=== PATIENT | male | born 1985 | race Caucasian/White ===

== ENCOUNTER 2021-05-12 12:00 | Outpatient (REF) | payer OTHER, SELFPAY ==
[2021-05-12 14:14] LABS: COVID-19 Test Negative (Negative)
== END 2021-05-12 12:01 | disposition home or self-care (01) ==
LOC: HO.LAB 12:00
PROVIDERS: Visit Provider Internal Medicine
DX: Z20.822 Contact with and (suspected) exposure to COVID-19 (principal)
CPT/HCPCS: 36415; 87635; C9803

== ENCOUNTER 2023-07-07 15:11 | Emergency (ER) | payer BC, SELFPAY ==
--- NOTE | 2023-07-07 | ECG_ITS ---
Test Reason : CP Blood Pressure : / mmHG Vent. Rate : 075 BPM Atrial Rate : 075 BPM P-R Int : 162 ms QRS Dur : 088 ms QT Int : 368 ms P-R-T Axes : 023 024 015 degrees QTc Int : 410 ms Normal sinus rhythm Normal ECG No previous ECGs available Referred By: Generic ED Physician Electronically Signed By:Johan Mcmahan
[2023-07-07 15:24] VITALS: BP 164/113; PULSE 81; RESP 20; TEMP 35.9; O2SAT 100; BMI 29.4
--- NOTE | 2023-07-07 15:29 | ED_ITS ---
HPI - Chest Pain General Chief Complaint: Chest Pain Stated Complaint: Chest pain Time Seen by Provider: 07/07/23 18:58 Related Data Allergies Allergy/AdvReac Type Severity Reaction Status Date / Time No Known Allergies Allergy Verified 07/07/23 15:31 Physical Exam 2 Vital Signs: Vital Signs: Last Vital Signs Temp 97.0 F 07/07/23 17:31 Pulse 85 07/07/23 17:31 Resp 18 07/07/23 17:31 BP 152/108 H 07/07/23 17:31 Pulse Ox 98 07/07/23 17:31 O2 Del Method Room Air 07/07/23 17:31 BMI result Body Mass Index 29.4 Course Course Course Narrative: RME:?38 yo male here for eval of constant left sided chest pain with radiation to back and left shoulder x3 days. Additionally endorses bright red blood in his stool, diarrhea, and shortness of breath x2 months. Does not currently follow with a PCP and has not been evaluated for this. No recent illness. No known sick contacts. labs, ekg, trop, OBS ordered Full HPI, ROS and PE to be performed by the primary ED provider. Reevaluation(s) Reevaluation #1: Patient left the ED without completing treatment. Medical Decision Making Lab Data 07/07/23 16:04 07/07/23 16:04 Labs: Lab Results 07/07/23 Range/Units 16:04 WBC 8.3 (4.8-10.8) X10*3/uL RBC 5.89 H (4.60-5.80) X10*6/uL Hgb 17.7 (14.0-18.0) g/dl Hct 52.6 H (42.0-52.0) % MCV 89.3 (80.0-98.0) fL MCH 30.1 (27.0-33.0) pg MCHC 33.7 (31.0-36.0) g/dl RDW 12.7 (11.0-16.0) % Plt Count 284 (160-400) X10*3/uL MPV 10.1 (9.4-12.4) fL Immature Gran % (Auto) 0.4 (0.0-0.4) % Neut % (Auto) 60.9 (45-73) % Lymph % (Auto) 26.0 (20-40) % [place] % (Auto) 8.1 (2-11) % Eos % (Auto) 3.9 (0-4) % Baso % (Auto) 0.7 (0-2) % Lymph # (Auto) 2.2 (1.2-4.9) X10*3/uL [place] # (Auto) 0.7 (0.1-1.2) X10*3/uL Eos # (Auto) 0.3 (0.0-0.4) X10*3/uL Baso # (Auto) 0.1 (0.0-0.2) X10*3/uL Abs Immat Gran (auto) 0.03 (0.00-0.03) X10*3/uL Absolute Neuts (auto) 5.0 (2.0-8.3) x10*3/uL Absolute Nucleated RBC 0.000 (0.0-0.012) X10*3/uL Nucleated RBC % (auto) 0.0 (0.0-0.2) /100WBC PT 12.5 (11.1-13.3) SEC INR 1.0 (0.9-1.1) Sodium 136 (135-145) mmol/L Potassium 4.5 (3.3-5.1) mmol/L Chloride 101 (96-108) mmol/L Carbon Dioxide 27 (22-29) mmol/L Anion Gap 13 (12-20) BUN 14 (9-16) mg/dL Creatinine 0.85 (0.5-1.4) mg/dL Estim Creat Clear Calc 133.6 Estimated GFR > 60 Random Glucose 86 (60-115) mg/dL Calcium 9.8 (8.4-10.2) mg/dL Magnesium 1.9 (1.6-2.6) mg/dL Total Bilirubin 1.5 H (0.0-1.0) mg/dL AST 38 H (5-37) U/L ALT 86 H (0-40) U/L Alkaline Phosphatase 63 (39-117) U/L Troponin I High Sens < 2.7 (<3.5-35.0) ng/L Total Protein 8.9 H (6.5-8.0) g/dL Albumin 4.8 (3.5-5.0) g/dL Lipase 21 (8-78) U/L Discharge Plan Discharge Clinical Impression: Chest pain Patient Disposition: Left W/O Completing Treatment
[2023-07-07 16:10] LABS: MANUAL DIFF FLAG NO
[2023-07-07 16:12] LABS: Basophils Absolute Auto 0.1 X10*3/uL (0.0-0.2); Basophils Percent Auto 0.7 % (0-2); Eosinophils Absolute Auto 0.3 X10*3/uL (0.0-0.4); Eosinophils Percent Auto 3.9 % (0-4); Hematocrit 52.6 % (42.0-52.0); Hemoglobin 17.7 g/dl (14.0-18.0); Imm Gran Abs Auto 0.03 X10*3/uL (0.00-0.03); Imm Gran Pct Auto 0.4 % (0.0-0.4); Lymphocytes Absolute Auto 2.2 X10*3/uL (1.2-4.9); Mean Corpuscular HGB Conc 33.7 g/dl (31.0-36.0); Mean Corpuscular Hemoglobin 30.1 pg (27.0-33.0); Mean Corpuscular Volume 89.3 fL (80.0-98.0); Mean Platelet Volume 10.1 fL (9.4-12.4); Monocytes Absolute Auto 0.7 X10*3/uL (0.1-1.2); Monocytes Percent Auto 8.1 % (2-11); Neutrophils Percent Auto 60.9 % (45-73); Platelet Count 284 X10*3/uL (160-400); Red Blood Count 5.89 X10*6/uL (4.60-5.80); Red Cell Distribution Width 12.7 % (11.0-16.0); White Blood Count 8.3 X10*3/uL (4.8-10.8)
[2023-07-07 16:20] LABS: Prothrombin Time 12.5 SEC (11.1-13.3)
[2023-07-07 16:25] LABS: Alanine Aminotransferase 86 U/L (0-40); Albumin Level 4.8 g/dL (3.5-5.0); Alkaline Phosphatase 63 U/L (39-117); Anion Gap 13 (12-20); Aspartate Amino Transferase 38 U/L (5-37); Bilirubin Total 1.5 mg/dL (0.0-1.0); Blood Urea Nitrogen 14 mg/dL (9-16); Calcium 9.8 mg/dL (8.4-10.2); Carbon Dioxide 27 mmol/L (22-29); Chloride 101 mmol/L (96-108); Creatinine Clr Calc Pharmacy 133.6; Estimated Glomerular Filt Rate > 60; Glucose Random 86 mg/dL (60-115); Lipase 21 U/L (8-78); Magnesium 1.9 mg/dL (1.6-2.6); Potassium 4.5 mmol/L (3.3-5.1); Sodium 136 mmol/L (135-145); Total Protein 8.9 g/dL (6.5-8.0)
[2023-07-07 17:31] VITALS: BP 152/108; PULSE 85; RESP 18; TEMP 36.1; O2SAT 98
[2023-07-07 18:09] LABS: Troponin-I High Sensitivity < 2.7 ng/L (<3.5-35.0)
== END 2023-07-07 19:21 | disposition left against medical advice (07) ==
PROVIDERS: Physician Assistant Medical; Emergency Provider Emergency Medicine; PCP Physician Assistant
DX: R07.89 Other chest pain (principal); Z79.899 Other long term (current) drug therapy
CPT/HCPCS: 36415; 80053; 83690; 83735; 84484; 85025; 85610; 93005; 99283

== ENCOUNTER → 2023-07-07 15:19 | Outpatient (BNV) | payer BC, SELFPAY | PROVIDERS: PCP Physician Assistant; Visit Provider Internal Medicine Cardiovascular Disease | DX: R07.9 Chest pain, unspecified (principal) | CPT/HCPCS: 93010 ==

== ENCOUNTER 2023-07-18 15:47 | Outpatient (AMB) | payer BC, SELFPAY ==
[2023-07-18 15:50] VITALS: BP 128/84; PULSE 80; BMI 30.4
--- NOTE | 2023-07-18 15:50 | A.OFFPC_ITS ---
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 Transferring care from Dr. Jacinda Lockhart MD . Medical records have been requested today. 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 Patient's [facility] PCP [facility] at [facility]. Patient has no chronic medical conditions. Does suffer from migraines in the Spring months. Patient was recently seen at the [place] [facility] for left-sided chest pain and reports a prior red blood per rectum. Labs and EKG were normal. Reports having this left sided chest pain the presents while lying down to sleep at 2-3am in the morning and keeps him up. He otherwise denies any left-sided chest pain during the day or on exertion. He does not smoke. He does admit to some upper GI pains at times which are located in a similar area on his left upper abdominal quadrant and chest. Vaccines: declines flu vaccine, need Tdap vaccine will await records. 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 1. Little interest or pleasure in doing things: not at all 2. Feeling down, depressed, or hopeless: not at all 3. Trouble falling or staying asleep, or sleeping too much: not at all 4. Feeling tired or having little energy: not at all 5. Poor appetite or overeating: not at all 6. Feeling bad about yourself - or that you are a failure or have let yourself or your family down: not at all 7. Trouble concentrating on things, such as reading the newspaper or watching television: not at all 8. Moving or speaking so slowly that other people could have noticed. Or the opposite - being so fidgety or restless that you have been moving around a lot more than usual: not at all 9. Thoughts that you would be better off or of hurting yourself in some way: not at all Total score: 0 Depression Screening Interpretation: Negative Depression Screening Done: Yes 34786 - PHQ-9 Billing: Yes Source: Developed by Drs. Gil Moreno, Radha Baxter, Juan J Jacobs and colleagues, with an educational aida from [employer]. Thrive Questionnaire Date Thrive assessed: 07/18/23 I am a: Patient What is your living situation today?: I have a steady place to live Within the past 12 months, did the food you bought not last and you didn't have the money to get more?: Never true Within the past 12 months, did you worry whether your food would run out before you got money to buy more?: Never true Do you have trouble paying for medicines?: No Do you have trouble getting transportation to medical appointments?: No Do you have trouble paying your heating and electricity bill?: No Do you have trouble taking care of your child, family member or friend?: No Do you have trouble with day-to-day activities such as bathing, preparing meals, shopping, managing finances, etc.?: No Are you currently unemployed and looking for a job?: No Are you interested in more education?: No Please select the resources that you would like help with: None Currently or been in a relationship where the following occur: no concerns reported THRIVE Score: 0 AUDIT C Alcohol Use Questionnaire (AUDIT-C) 1. How often do you have a drink containing alcohol?: 2-3 times a week 2. How many drinks containing alcohol do you have on a typical day when you are drinking?: 3 or 4 3. How often do you have six or more drinks on one occasion?: Less than monthly Total Score: 5 ROBYN-7 AMB Questionnaire ROBYN-7 Date ROBYN - 7 assessed: 07/18/23 Feeling nervous, anxious, or on edge: 0 = Not at all Not being able to stop or control worryin = Not at all Worrying too much about different things: 0 = Not at all Trouble relaxin = Not at all Being so restless that it is hard to sit still: 0 = Not at all Becoming easily annoyed or irritable: 0 = Not at all Feeling afraid as if something awful might happen: 0 = Not at all Total ROBYN-7 score (0-4 normal; 5-9 mild; 10-14 moderate; 15-21 severe): 0 Source: Developed by Drs. Gil Moreno, Radha Baxter, Juan J Jacobs and colleagues, with an educational aida from [employer]. ROBYN-7 Assessment Billing ROBYN-7 Assessment Tool: ROBYN-7 Assessment [id number] Review of Systems Const Denies body aches, Denies chills, Denies excessive sweating, Denies fatigue, Denies fever(s) and Denies headache(s) Eyes Denies blurry vision ENT Denies dysphagia, Denies vertigo, Denies dizziness, Denies headache(s), Denies hearing loss and Denies tinnitus Card Reports chest pain, Reports chest pain at rest, Denies chest pain with activity, Denies syncope, Denies irregular heart rhythm and Denies dyspnea Resp Denies chest congestion, Denies cough, Denies hemoptysis, Denies dyspnea and Denies wheezing GI Denies abdominal pain, Denies melena, Denies hematochezia, Denies coffee ground emesis, Denies dysphagia, Denies diarrhea, Denies nausea and Denies vomiting Denies difficulty urinating, Denies dysuria, Denies urinary frequency, Denies urinary hesitancy and Denies urinary urgency Musc Denies arthralgias, Denies limited range of motion, Denies muscle cramps and Denies muscle weakness Skin/Breast Denies rash and Denies skin ulcer Neuro Denies Abnormal speech present, Denies confusion, Denies vertigo, Denies dizziness, Denies syncope, Denies headache(s), Denies memory loss and Denies seizure-like activity Psych Denies anxiety, Denies confusion, Denies depression, Denies memory loss, Denies panic attacks and Denies paranoia Endo Denies excessive sweating, Denies fatigue, Denies flushing, Denies polydipsia and Denies polyuria Aller/Immun Denies wheezing Physical exam (Primary Care) Vital Signs: Last Vital Signs Pulse 80 07/18/23 15:50 BP 128/84 07/18/23 15:50 BMI result Body Mass Index 30.4 BMI Assessment/Plan discussion: High Tobacco/Smoking Status: Tobacco use Status Tobacco use date assessed 07/18/23 07/18/23 16:04 Patient Tobacco Use Status Never used Tobacco 07/18/23 16:16 e-Cigarette/Vaping Use Never Used 07/18/23 16:16 PHQ-9: PHQ-9 Score PHQ-9: Total score 0 07/18/23 16:26 Depression Screening Interpretation: Negative Thrive Assessment: Date of Thrive Assessment Date Thrive assessed 07/18/23 07/18/23 16:04 Currently or been in a relationship where the following occur: no concerns reported Const Other: Obese General: cooperative, comfortable, no acute distress, alert and awake; No confusion Orientation/consciousness: oriented to person, oriented to place, patient oriented x3 and No confusion HENMT Head: Yes normocephalic Ears: external ears normal and TM's normal bilaterally Face and sinus: No sinus tenderness Mouth: Normal oral and palatal mucosa present and tongue normal Teeth and gingiva: dentition normal and gingiva normal Throat: Yes posterior oropharynx normal, Yes tonsils normal and Yes uvula midline Eyes Conjunctivae: conjunctivae normal Sclerae: sclerae normal Pupils: Equal, round and reactive pupils present EOM: EOMs intact bilaterally Direct Ophthalmoscopy: No no photophobia Neck Neck: Yes no lymphadenopathy, No tender and Yes no JVD Thyroid: Thyroid normal Carotids: no bruits Chest Chest palpation & inspection: no tenderness Resp Effort & Inspection: normal respiratory effort, no audible wheezes, not labored and no stridor Auscultation: no crackles, no rales, no rhonchi and no wheezes Cardio Jugular venous distension: no JVD Rate: regular rate, not bradycardic and not tachycardic Rhythm: regular rhythm Bruits: no carotid bruits Peripheral pulses: Peripheral pulses 2+ throughout GI Inspection: Yes normal to inspection, No abdominal wall ecchymosis and No visible herniation Palpation (GI): Soft to palpation, nontender, no guarding, not rigid and No hepatosplenomegaly present Auscultation: normoactive bowel sounds General: Yes no CVA tenderness Back/Spine/Pelvis Back: no CVA tenderness and No back tenderness Cervical Spine: cervical ROM normal Thoracic/Lumbar Spine: thoracic and lumbar spine normal to inspection, straight leg raise negative bilaterally, No thoraco-lumbar ROM limited and No lumbar spinal tenderness Skin Lesions: no lesions Rashes: no rashes Wounds: no wounds Neuro General: oriented to person, oriented to place, patient oriented x3, CN's II-XI intact bilaterally and No confusion Cranial nerves: Yes Equal, round and reactive pupils present and Yes Normal accommodation reflex present Cognition (Neuro): normal cognition Speech: No Abnormal speech present Gait exam (Neuro): Normal gait present Motor exam (neuro): 5/5 motor strength present throughout Extrem Right upper extremity: full ROM; no cyanosis Left upper extremity: full ROM; no cyanosis Right lower extremity: no edema Left lower extremity: no edema Psych Appearance: grossly normal Mental Status: mental status grossly normal Affect: normal affect Attitude: cooperative Thought process: Normal thought process present Assessment and Plan Assessment & Plan (1) Annual physical exam: Code(s): Z00.00 - Encounter for general adult medical examination without abnormal findings (2) Left-sided chest pain: Code(s): R07.9 - Chest pain, unspecified Plan: Unclear etiology to patient's left-sided chest pain that presents when lying down and sleeping in the middle of the night. Otherwise during the day he is completely fine without any chest pain, shortness for breath, headache ect. Very odd presentation though could be GI related. Will try PPI. Will also send for chest x-ray to evaluate the lower aspect of his left rib/ lung. Will consider cardiac stress testing (3) Screening for diabetes mellitus (DM): Code(s): Z13.1 - Encounter for screening for diabetes mellitus (4) Obese: Code(s): E66.9 - Obesity, unspecified Qualifiers: Body mass index: BMI 30.0-30.9 Obesity classification: adult class 1 (BMI 30 - 34.9) Obesity type: due to excess calories Serious obesity comorbidity presence: without serious comorbidity Qualified Code(s): E66.09 - Other obesity due to excess calories; Z68.30 - Body mass index [BMI] 30.0-30.9, adult Plan: Patient does understand his BMI is over 30 will continue working on being more physically active and adapting to better eating habits to reduce his weight. (5) GERD (gastroesophageal reflux disease): Code(s): K21.9 - Gastro-esophageal reflux disease without esophagitis Qualifiers: Esophagitis presence: without esophagitis Qualified Code(s): K21.9 - Gastro-esophageal reflux disease without esophagitis Plan: He does report at times having GERD type symptoms. Will supply patient with a 2 week trial of PPI therapy to see if his left-sided chest pain resolves. (6) LUQ abdominal pain: Code(s): R10.12 - Left upper quadrant pain Plan: Patient's pain is somewhat located in left upper abdominal quadrant thus will se nd for ultrasound of the abdomen to evaluate for splenomegaly or spleen cyst. (7) Migraine: Code(s): G43.909 - Migraine, unspecified, not intractable, without status migrainosus Qualifiers: Intractability: not intractable Migraine type: unspecified Status migrainosus presence: without status migrainosus Qualified Code(s): G43.909 - Migraine, unspecified, not intractable, without status migrainosus Plan: Does report having severe migraine that cause him temporary disability in the spring time which he attributes to changes in barometric pressures and weather. Will supply patient with sumatriptan 25 mg to use on a p.r.n. basis to abort migraine. Orders: Orders US abdomen complete 07/18/23 R10.12 - Left upper quadrant pain Complete Blood Count no Diff 07/18/23 R10.12 - Left upper quadrant pain XR chest 2V 07/18/23 R07.9 - Chest pain, unspecified Comprehensive [place]. Panel Fast 07/18/23 Z13.1 - Encounter for screening for diab etes mellitus Lipase 07/18/23 R10.12 - Left upper quadrant pain Medications: New sumatriptan succinate take 1 tab at onset of headache; if no relief may repeat 1 tab after at least 2 hrs; max = 4 tabs/24 hr PO 30 days 9 tabs 0RF G43.909 - Migraine, unspecified, not intractable, without status migrainosus omeprazole 20 mg PO DAILY 14 days 14 caps 0RF K21.9 - Gastro-esophageal reflux disease without esophagitis Coding Level of Care Code New Pt Prev Care 18-39yr([id number] Diagnoses Annual physical exam Z00.00 Left-sided chest pain R07.9 Screening for diabetes mellitus (DM) Z13.1 Class 1 obesity due to excess calories without serious comorbidity with body mass index (BMI) of 30.0 to 30.9 in adult E66.09; Z68.30 Body mass index: BMI 30.0-30.9 Obesity classification: adult class 1 (BMI 30 - 34.9) Obesity type: due to excess calories Serious obesity comorbidity presence: without serious comorbidity Gastroesophageal reflux disease without esophagitis K21.9 Esophagitis presence: without esophagitis LUQ abdominal pain R10.12 Migraine without status migrainosus, not intractable, unspecified migraine type G43.909 Intractability: not intractable Migraine type: unspecified Status migrainosus presence: without status migrainosus Additional Codes ROBYN-7 Assessment Billing - ROBYN-7 Assessment Tool: ROBYN-7 Assessment [id number] ([id number])
== END 2023-07-18 16:35 | disposition home or self-care (01) ==
PROVIDERS: PCP Physician Assistant; Visit Provider Physician Assistant
DX: Z00.00 Encounter for general adult medical examination without abnormal findings (principal); R07.9 Chest pain, unspecified; Z13.1 Encounter for screening for diabetes mellitus; E66.09 Other obesity due to excess calories; Z68.30 Body mass index [BMI] 30.0-30.9, adult; K21.9 Gastro-esophageal reflux disease without esophagitis; R10.12 Left upper quadrant pain; G43.909 Migraine, unspecified, not intractable, without status migrainosus
CPT/HCPCS: 99385

== ENCOUNTER 2023-08-07 08:25 | Outpatient (REF) | payer BC, SELFPAY ==
--- NOTE | ~2023-08-07 | XR_ITS ---
EXAMINATION: XR CHEST CLINICAL INFORMATION: Chest pain. COMPARISON: None available. TECHNIQUE: 2 views of the chest were obtained. FINDINGS: No significant abnormality is noted involving the heart, lungs, mediastinum, bony thorax or soft tissues. XR/XR chest 2V IMPRESSION: Unremarkable examination.
--- NOTE | ~2023-08-07 | US_ITS ---
EXAMINATION: US ABDOMEN COMPLETE CLINICAL INFORMATION: Left upper quadrant pain. COMPARISON: None available. TECHNIQUE: Real-time imaging of the abdominal viscera. Technically difficult study secondary to bowel gas. FINDINGS: PANCREAS: Limited visualization of pancreatic tail and head. Imaged portion of pancreatic body is unremarkable. ABDOMINAL AORTA: Poorly visualized. INFERIOR VENA CAVA: Visualized portions are normal. LIVER: Increased hepatic parenchymal heterogeneity and echogenicity could be associated with hepatocellular disease/hepatic steatosis and substantially limits visualization. Correlation with liver function tests and clinical exam recommended to determine further management. GALLBLADDER: No gallstones. Borderline gallbladder wall thickening of 3 mm. COMMON BILE DUCT: Normal in caliber measuring 0.4 cm in diameter. RIGHT KIDNEY: No hydronephrosis. No renal calculi. Limited visualization. The kidney measures 10.5 cm in maximum dimension. LEFT KIDNEY: No hydronephrosis. No renal calculi. Limited visualization. The kidney measures 11.4 cm in maximum dimension. SPLEEN: Borderline enlarged. The spleen measures 13.0 cm in maximum dimension. FREE FLUID: None. US/US abdomen complete IMPRESSION: 1. Increased hepatic parenchymal heterogeneity and echogenicity could be associated with hepatocellular disease/hepatic steatosis and substantially limits visualization. Correlation with liver function tests and clinical exam recommended to determine further management. 2. Borderline gallbladder wall thickening of 3 mm. 3. Borderline splenomegaly.
== END 2023-08-07 08:26 | disposition home or self-care (01) ==
LOC: HO.US 08:25
PROVIDERS: PCP Physician Assistant; Visit Provider Physician Assistant
DX: R07.9 Chest pain, unspecified (principal); R10.12 Left upper quadrant pain
CPT/HCPCS: 71046; 76700

== ENCOUNTER 2023-10-11 11:03 | Outpatient (REF) | payer BC, SELFPAY ==
[2023-10-11 12:33] LABS: Hematocrit 50.8 % (42.0-52.0); Hemoglobin 17.1 g/dl (14.0-18.0); Mean Corpuscular HGB Conc 33.7 g/dl (31.0-36.0); Mean Corpuscular Hemoglobin 30.5 pg (27.0-33.0); Mean Corpuscular Volume 90.7 fL (80.0-98.0); Mean Platelet Volume 10.3 fL (9.4-12.4); Platelet Count 304 X10*3/uL (160-400); Red Cell Distribution Width 12.7 % (11.0-16.0); White Blood Count 7.7 X10*3/uL (4.8-10.8)
[2023-10-11 13:09] LABS: Alanine Aminotransferase 41 U/L (0-40); Albumin Level 4.7 g/dL (3.5-5.0); Alkaline Phosphatase 68 U/L (39-117); Anion Gap 14 (12-20); Aspartate Amino Transferase 28 U/L (5-37); Bilirubin Total 1.4 mg/dL (0.0-1.0); Blood Urea Nitrogen 11 mg/dL (9-16); Calcium 9.9 mg/dL (8.4-10.2); Carbon Dioxide 26 mmol/L (22-29); Chloride 102 mmol/L (96-108); Cholesterol 185 mg/dL (<200); Estimated Glomerular Filt Rate > 60; Glucose Random 90 mg/dL (60-115); HDL Cholesterol 44 mg/dL (>40); Iron 128 mcg/dL (45-160); LDL Cholesterol Calculated 109 mg/dL (<100); Percent Iron Saturation 43 % (15-50); Potassium 4.3 mmol/L (3.3-5.1); Sodium 138 mmol/L (135-145); Total Iron Binding Capacity 299 mcg/dL (228-428); Total Protein 8.5 g/dL (6.5-8.0); Triglycerides 164 mg/dL (<150); Unsaturated Iron Binding 171 ug/dL
[2023-10-11 13:23] LABS: Ferritin 226 ng/mL (20-250)
[2023-10-11 13:24] LABS: Estimated Average Glucose 108 mg/dL; Hemoglobin A1c % 5.4 % (<6.0)
[2023-10-12 04:33] LABS: HBS Num1 17.92 mIU/mL (0-7.99); HBc Num1 0.14 S/CO (0.00-0.79); HBsAGNum1 0.26 S/CO (0.00-0.99); HIV AB/AG Nonreactive (Nonreactive); HIV Num 1 0.05 S/CO (0.00-0.99); Hepatitis B Core Antibody Nonreactive (Nonreactive); Hepatitis B Surface Antigen Negative (Negative); ~HepC Num1 0.11 S/CO (0.00-0.79); ~Hepatitis B Surface Antibody REACTIVE (Nonreactive); ~Hepatitis C Antibody Nonreactive (Nonreactive)
[2023-10-12 04:34] LABS: Hepatitis A Antibody IgG Nonreactive (Nonreactive); ~Hepatitis A Antibody IgG 0.67 S/CO (0.00-0.99)
[2023-10-12 14:44] LABS: Alpha 1 Anti-trypsin 135 mg/dL (83-199); Ceruloplasmin 25 mg/dL (14-30)
[2023-10-12 14:54] LABS: Immunoglobulin A 329 mg/dL (47-310); Immunoglobulin G 1872 mg/dL (600-1640)
[2023-10-13 08:23] LABS: Transglutaminase IgA <1.0 U/mL
[2023-10-17 13:13] LABS: Mitochondrial Antibodies NEGATIVE (NEGATIVE)
[2023-10-17 13:23] LABS: Liver Kidney Microsomal Ab <=20.0 U (<=20.0)
== END 2023-10-11 11:04 | disposition home or self-care (01) ==
LOC: HO.LAB 11:03
PROVIDERS: PCP Physician Assistant; Visit Provider Internal Medicine
DX: Z11.4 Encounter for screening for human immunodeficiency virus [HIV] (principal); R79.89 Other specified abnormal findings of blood chemistry; R16.1 Splenomegaly, not elsewhere classified
CPT/HCPCS: 36415; 80053; 80061; 80321; 82103; 82390; 82728; 82784; 83036; 83540; 85027; 86364; 86376; 86381; 86704; 86706; 86708; 86803; 87340; 87389

== ENCOUNTER 2023-10-11 11:03 | Outpatient (AMB) | payer BC, SELFPAY ==
[2023-10-11 11:14] VITALS: BP 133/82; PULSE 76; BMI 29.4
--- NOTE | 2023-10-11 11:14 | A.OFFVIS_ITS ---
Vital Signs 10/11/23 11:14 Height 5 ft 10 in Weight 205 lb 0.478 oz BMI 29.4 BP 133/82 Blood Pressure Location Lt brachial Position Sitting Pulse 76 Intake Visit Reasons: splenomegaly Intake Note: Griffin presents in the office as a new patient for Splenomegaly. CC: He states that originally he was sent here because of severe diarrhea and pains in the LUQ. Under his left rib cage and it radiated to his back of the left arm - he states that sometimes after he eats he feels it but it has gotten a lot better. He states that the last month or so he has not had diarrhea and not many pains in the LUQ. Senior Director Insight Required: No Allergies No Known Allergies Allergy (Verified 10/11/23 11:23) HPI Comments Details: 38 y.o M referred for abnormal US. Reports many months ago had L sided chest and abd pain that radiated to his shoulder. Pain subsided in a few weeks. Sometimes gets tightness of that area tamy after eating food. Pt drinks etOH 2 drinks 4-5 times a week. Non smoker. No OTC or CAM. 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 Cognitive needs: No Hearing needs: No Vision needs: No Physical Exam Vital Signs: Last Vital Signs Pulse 76 10/11/23 11:14 BP 133/82 10/11/23 11:14 BMI result Body Mass Index 29.4 NAD Nonicteric Abd soft, nondistended A.Ox3, normal gait Assessment & Plan Assessment & Plan (1) Elevated LFTs: Code(s): R79.89 - Other specified abnormal findings of blood chemistry Category: Medical (2) Splenomegaly: Code(s): R16.1 - Splenomegaly, not elsewhere classified Category: Medical (3) Screening for diabetes mellitus (DM): Code(s): Z13.1 - Encounter for screening for diabetes mellitus Category: Medical (4) Alcohol use: Code(s): Z78.9 - Other specified health status Plan REviewed with the pt that based on LFT pattern most likely due to etOH use which in turn has also led to borderline splenomegaly. Will also run labs to r/o other causes such as AIH, iron overload, wilsons, chronic hep etc. Plan: - Labs as below - Abstinence from etOH x 3 months and recheck labs - Fib-4 0.56, advanced fibrosis less likely at this time. Follow up 4 months Orders: Orders Comprehensive Met. Panel Today R16.1 - Splenomegaly, not elsewhere classified, R79.89 - Other specified abnormal findings of blood chemistry Ferritin Today R16.1 - Splenomegaly, not elsewhere classified, R79.89 - Other specified abnormal findings of blood chemistry Phosphatidylethanol, Blood Today R16.1 - Splenomegaly, not elsewhere cla ssified, R79.89 - Other specified abnormal findings of blood chemistry Hepatitis A IgG Today R16.1 - Splenomegaly, not elsewhere classified, R79.89 - Other specified abnormal findings of blood chemistry Hepatitis C Antibody Today R16.1 - Splenomegaly, not elsewhere classified, R79.89 - Other specified abnormal findings of blood chemistry Immunoglobulin G Today R16.1 - Splenomegaly, not elsewhere classified, R79.89 - Other specified abnormal findings of blood chemistry Mitochondrial Antibody Today R16.1 - Splenomegaly, not elsewhere classified, R79.89 - Other specified abnormal findings of blood chemistry Liver Kidney Microsomal Ab Today R16.1 - Splenomegaly, not elsewhere classified, R79.89 - Other specified abnormal findings of blood chemistry Hemoglobin A1c Today R16.1 - Splenomegaly, not elsewhere classified, R79.89 - Other specified abnormal findings of blood chemistry Complete Blood Count no Diff Today R16.1 - Splenomegaly, not elsewhere classified, R79.89 - Other specified abnormal findings of blood chemistry Alpha 1 Anti-trypsin Today R16.1 - Splenomegaly, not elsewhere classified, R79.89 - Other specified abnormal findings of blood chemistry Ceruloplasmin Today R16.1 - Splenomegaly, not elsewhere classified, R79.89 - Other specified abnormal findings of blood chemistry Hepatitis B Core Antibody Today R16.1 - Splenomegaly, not elsewhere classified, R79.89 - Other specified abnormal findings of blood chemistry Hepatitis B Surface Antibody Today R16.1 - Splenomegaly, not elsewhere classified, R79.89 - Other specified abnormal findings of blood chemistry Hepatitis B Surface Antigen Today R16.1 - Splenomegaly, not elsewhere classified, R79.89 - Other specified abnormal findings of blood chemistry HIV Ab/Ag Today R16.1 - Splenomegaly, not elsewhere classified, R79.89 - Other specified abnormal findings of blood chemistry Immunoglobulin A Today R16.1 - Splenomegaly, not elsewhere classified, R79.89 - Other specified abnormal findings of blood chemistry IRON PROFILE Today R16.1 - Splenomegaly, not elsewhere classified, R79.89 - Other specified abnormal findings of blood chemistry Transglutaminase IgA Today R16.1 - Splenomegaly, not elsewhere classified, R79.89 - Other specified abnormal findings of blood chemistry Lipid Panel Today R16.1 - Splenomegaly, not elsewhere classified, R79.89 - Other specified abnormal findings of blood chemistry Liver Panel 4 Months R79.89 - Other specified abnormal findings of blood chemistry Coding Level of Care Code New Pt Level 4 (22349) Diagnoses Elevated LFTs R7. Splenomegaly R16.1 Screening for diabetes mellitus (DM) Z13.1 Alcohol use Z78.9
== END 2023-10-11 12:01 | disposition home or self-care (01) ==
PROVIDERS: PCP Physician Assistant; Visit Provider Internal Medicine
DX: R79.89 Other specified abnormal findings of blood chemistry (principal); R16.1 Splenomegaly, not elsewhere classified; Z13.1 Encounter for screening for diabetes mellitus; Z78.9 Other specified health status
CPT/HCPCS: 99204

== ENCOUNTER 2024-01-16 15:37 | Outpatient (AMB) | payer BC, SELFPAY ==
[2024-01-16 15:45] VITALS: BP 118/72; PULSE 107; O2SAT 97; BMI 29.8
--- NOTE | 2024-01-16 15:45 | MHC.PC.OV ---
Vital Signs 01/16/24 15:45 Height 5 ft 10 in Weight 207 lb 6 oz BMI 29.8 BP 118/72 Blood Pressure Location Lt brachial Position Sitting Pulse 107 H Pulse Source Pulse Oximeter Pulse Oximetry (%) 97 Oxygen Delivery Method Room Air Intake Visit Reasons: f/u Labs Palletizer Operator Required: No Accompanied by: Self / Same As Patient Allergies No Known Allergies Allergy (Verified 01/16/24 15:47) Medication List - Last Reconciled 01/16/24 by Terry Vega PA-C omeprazole 20 mg PO DAILY 14 days sumatriptan succinate take 1 tab at onset of headache; if no relief may repeat 1 tab after at least 2 hrs; max = 4 tabs/24 hr PO 30 days Tobacco use date assessed: 07/18/23 Dental Screening Dental Screen Date: 07/18/23 HPI f/u Labs HPI Details Patient is a 38-year-old male here today for follow-up visit. Patient's past medical history significant for migraine disorder, splenomegaly and elevated LFTs. Did get an ultrasound of his abdomen which did show splenomegaly and signs symptoms consistent with fatty liver disease. He was advised to abstain from alcohol. Has followed up with Gastroenterology and repeat liver enzymes have improved. He also reports he has stopped snacking after 20:00 and now feels much better. Otherwise is due for a new baby girl next few weeks and needs a Tdap vaccine. Laboratory Tests 07/07/23 10/11/23 16:04 12:16 RBC 5.89 H 5.60 Random Glucose 90 Hemoglobin A1c % 5.4 AST 38 H 28 ALT 86 H 41 H IgG 1872 H IgA 329 H PFSH Medical History Mixed anxiety and depressive disorder Migraine Surgical History History of esophagogastroduodenoscopy (EGD) Hx of appendectomy Family History Father High cholesterol Mother Breast cancer Social History Housing: House Alcohol intake: current Alcohol intake frequency: a few times a month Alcohol type: beer Patient Tobacco Use Status: Never used Tobacco e-Cigarette/Vaping Use: Never Used service: No Current occupational status: employed 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 Gil Moreno, Radha Baxter, Juan J Jacobs and colleagues, with an educational aida from [employer]. Review of Systems Const Denies headache(s) Eyes Denies loss of vision ENT Denies vertigo, Denies dizziness, Denies headache(s) and Denies sore throat Card Denies chest pain, Denies leg edema and Denies lightheadedness Resp Denies cough, Denies hemoptysis and Denies wheezing GI Denies abdominal pain, Denies melena, Denies constipation, Denies diarrhea and Denies vomiting Denies dysuria, Denies urinary frequency and Denies urinary urgency Musc Denies arthralgias, Denies joint swelling, Denies numbness and Denies tingling Neuro Denies Abnormal speech present, Denies behavioral changes, Denies vertigo, Denies dizziness, Denies headache(s), Denies loss of vision, Denies memory loss, Denies numbness and Denies tingling Psych Denies anxiety, Denies behavioral changes, Denies depression, Denies memory loss and Denies panic attacks Yanick/Lymph Denies easy bleeding and Denies easy bruising Aller/Immun Denies wheezing Physical exam (Primary Care) Vital Signs: Last Vital Signs Pulse 107 H 01/16/24 15:45 BP 118/72 01/16/24 15:45 Pulse Ox 97 01/16/24 15:45 Oxygen Delivery Method Room Air 01/16/24 15:45 BMI result Body Mass Index 29.8 Tobacco/Smoking Status: Tobacco use Status Tobacco use date assessed 07/18/23 01/16/24 15:46 Patient Tobacco Use Status Never used Tobacco 01/16/24 15:46 e-Cigarette/Vaping Use Never Used 01/16/24 15:46 Thrive Assessment: Date of Thrive Assessment Date Thrive assessed 07/18/23 01/16/24 15:46 Const General: healthy appearing, no acute distress, alert and awake Nutritional Appearance: well nourished Orientation/consciousness: oriented to person, oriented to place and oriented to time HENMT Ears: TM's normal bilaterally General nose exam: Normal nasal mucous membranes and turbinates present Eyes Conjunctivae: conjunctivae normal Sclerae: sclerae normal Pupils: Equal, round and reactive pupils present Neck Neck: Yes no lymphadenopathy and Yes no JVD Thyroid: Thyroid normal Carotids: no bruits Resp Effort & Inspection: normal respiratory effort and not tachypneic Auscultation: no crackles, no rales, no rhonchi and no wheezes Cardio Rate: regular rate Rhythm: regular rhythm Heart sounds: no murmurs and normal S1 and S2 GI Palpation (GI): Soft to palpation, nontender, no hepatomegaly and no splenomegaly Auscultation: normal bowel sounds Skin General skin exam: no rashes or lesions noted and dry skin Neuro General: oriented to person, oriented to place and oriented to time Cranial nerves: Yes Equal, round and reactive pupils present Speech: No Abnormal speech present Gait exam (Neuro): Normal gait present Motor exam (neuro): no tremor noted Extrem Right upper extremity: full ROM Left upper extremity: full ROM Right lower extremity: full ROM; no edema Left lower extremity: full ROM; no edema Psych Mental Status: mental status grossly normal Speech and movement: Normal speech and movement present Affect: normal affect Attitude: cooperative Thought process: Normal thought process present Immunizations Boostrix Tdap 2.5 Lf unit-8 mcg-5 Lf/0.5 mL intramuscular syringe Performing Provider: Terry Vega PA-C Performing Location: [facility] Administered by: RACHID Graham on 01/16/24 16:04 Dose Route Admin Location Dispensed Lot Number Expiration Date NDC Fe[employer] Machine Feeder 0.5 mL IM Left Deltoid 0.5 mL [id number] 01/05/26 [id number] Silenseed VIS Given Date VIS Provided VIS Publication Date 01/16/24 Single Vaccine 20 Eligibility Eligibility Date Funding Source Not [facility] Eligible 01/16/24 Private Assessment and Plan Assessment & Plan (1) Splenomegaly: Code(s): R16.1 - Splenomegaly, not elsewhere classified Plan: Now followed by gastroenterology. Most recent liver enzymes were stable. He reports he has stopped snacking in the afternoon and has lost weight now feeling much better. No further pain in his abdomen. Recent CBC platelet counts showing to be normal. (2) GERD (gastroesophageal reflux disease): Code(s): K21.9 - Gastro-esophageal reflux disease without esophagitis Qualifiers: Esophagitis presence: without esophagitis Qualified Code(s): K21.9 - Gastro-esophageal reflux disease without esophagitis Plan: Reports omeprazole has been effective with limited use. Has made dietary changes which has drastically reduced his GERD symptoms. (3) Migraine: Code(s): G43.909 - Migraine, unspecified, not intractable, without status migrainosus Qualifiers: Intractability: not intractable Migraine type: unspecified Status migrainosus presence: without status migrainosus Qualified Code(s): G43.909 - Migraine, unspecified, not intractable, without status migrainosus Plan: Reports his migraines have been not as frequent. Did use sumatriptan once which was effective. Orders: Orders TDaP Immunization Today Z23 - Encounter for immunization Comprehensive Champion. Panel Fast 6 Months Z13.1 - Encounter for screening for diabetes mellitus Complete Blood Count no Diff 6 Months K21.9 - Gastro-esophageal reflux disease without esophagitis Coding Level of Care Code Est Pt Level 4 (67746) Diagnoses Splenomegaly R16.1 Gastroesophageal reflux disease without esophagitis K21.9 Esophagitis presence: without esophagitis Migraine without status migrainosus, not intractable, unspecified migraine type G43.909 Intractability: not intractable Migraine type: unspecified Status migrainosus presence: without status migrainosus
== END 2024-01-16 15:59 | disposition home or self-care (01) ==
PROVIDERS: PCP Physician Assistant; Visit Provider Physician Assistant
DX: R16.1 Splenomegaly, not elsewhere classified (principal); K21.9 Gastro-esophageal reflux disease without esophagitis; G43.909 Migraine, unspecified, not intractable, without status migrainosus; Z23 Encounter for immunization
CPT/HCPCS: 90471; 90715; 99214

== ENCOUNTER 2024-02-14 15:13 | Outpatient (REF) | payer BC, SELFPAY ==
[2024-02-14 17:09] LABS: Hematocrit 50.2 % (42.0-52.0); Hemoglobin 17.1 g/dl (14.0-18.0); Mean Corpuscular HGB Conc 34.1 g/dl (31.0-36.0); Mean Corpuscular Hemoglobin 30.2 pg (27.0-33.0); Mean Corpuscular Volume 88.7 fL (80.0-98.0); Mean Platelet Volume 10.4 fL (9.4-12.4); Platelet Count 309 X10*3/uL (160-400); Red Blood Count 5.66 X10*6/uL (4.60-5.80); Red Cell Distribution Width 12.5 % (11.0-16.0); White Blood Count 7.6 X10*3/uL (4.8-10.8)
[2024-02-14 17:14] LABS: Prothrombin Time 11.9 SEC (10.9-12.4)
[2024-02-14 17:45] LABS: Alanine Aminotransferase 39 U/L (0-40); Albumin Level 4.5 g/dL (3.5-5.0); Alkaline Phosphatase 66 U/L (39-117); Anion Gap 10 (12-20); Aspartate Amino Transferase 25 U/L (5-37); Bilirubin Direct 0.3 mg/dL (0.0-0.5); Bilirubin Total 1.5 mg/dL (0.0-1.0); Blood Urea Nitrogen 12 mg/dL (9-16); Calcium 9.8 mg/dL (8.4-10.2); Carbon Dioxide 29 mmol/L (22-29); Chloride 104 mmol/L (96-108); Estimated Glomerular Filt Rate > 60; Glucose Random 74 mg/dL (60-115); Potassium 3.7 mmol/L (3.3-5.1); Sodium 139 mmol/L (135-145); Total Protein 8.4 g/dL (6.5-8.0)
== END 2024-02-14 15:14 | disposition home or self-care (01) ==
LOC: HO.LAB 15:13
PROVIDERS: PCP Physician Assistant; Visit Provider Internal Medicine
DX: R79.89 Other specified abnormal findings of blood chemistry (principal); Z79.01 Long term (current) use of anticoagulants
CPT/HCPCS: 36415; 80053; 82248; 85027; 85610

== ENCOUNTER → 2024-02-14 15:13 | Outpatient (AMB) | payer BC, SELFPAY ==
--- NOTE | 2024-02-14 15:16 | MHC.OFFVIS ---
Vital Signs 02/14/24 15:18 Height 5 ft 10 in Weight 200 lb 9.93 oz BMI 28.8 BP 136/80 Blood Pressure Location Lt brachial Position Sitting Pulse 88 Intake Visit Reasons: 4 month follow up Intake Note: Guero presents in the office as a 4 month follow up. CC: He states that he is not having any concerns today just routine follow up. Business Support Coordinator Required: No Allergies No Known Allergies Allergy (Verified 02/14/24 15:22) HPI Comments Details: 38 y.o M referred for abnormal US. Reports many months ago had L sided chest and abd pain that radiated to his shoulder. Pain subsided in a few weeks. Sometimes gets tightness of that area tamy after eating food. Pt drinks etOH 2 drinks 4-5 times a week. Non smoker. No OTC or CAM. 02/14/24: Reports had some more drinks during a vacation in November but since then has just consumed 1 beer per week. Sometimes also takes 1 glass of whiskey a week. Has a one week old baby girl at home now so definitely motivated to make positive changes. 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 Cognitive needs: No Hearing needs: No Vision needs: No Review of Systems Const All systems reviewed & are unremarkable except as noted in HPI and below Physical Exam Vital Signs: Last Vital Signs Pulse 88 02/14/24 15:18 BP 136/80 02/14/24 15:18 BMI result Body Mass Index 28.8 No apparent distress Nonicteric Abdomen soft, nondistended Alert and oriented x3, normal gait Assessment & Plan Assessment & Plan (1) Elevated LFTs: Code(s): R79.89 - Other specified abnormal findings of blood chemistry Category: Medical (2) Splenomegaly: Code(s): R16.1 - Splenomegaly, not elsewhere classified Category: Medical (3) Alcohol use disorder: Code(s): F10.90 - Alcohol use, unspecified, uncomplicated Plan Pt congratulated on cutting down dramatically. REviewed that would recommend complete abstinence. Will recheck MELD labs - expect improvement in transaminases now that pt drinking <10% of what he used to. Plan: - CBC, INR, CMP ordered - Follow up PRN if improving Orders: Orders Prothrombin Time INR 02/14/24 R7.89 - Other specified abnormal findings of blood chemistry Complete Blood Count no Diff 02/14/24 R7. - Other specified abnormal findings of blood chemistry Comprehensive Met. Panel 02/14/24 R7. - Other specified abnormal findings of blood chemistry Coding Level of Care Code Est Pt Level 3 (76597) Diagnoses Elevated LFTs . Splenomegaly R16.1 Alcohol use disorder F10.90
[2024-02-14 15:18] VITALS: BP 136/80; PULSE 88; BMI 28.8
== END ==
PROVIDERS: PCP Physician Assistant; Visit Provider Internal Medicine
DX: R79.89 Other specified abnormal findings of blood chemistry (principal); R16.1 Splenomegaly, not elsewhere classified; F10.90 Alcohol use, unspecified, uncomplicated
CPT/HCPCS: 99499

== ENCOUNTER 2024-07-22 08:53 | Outpatient (AMB) | payer BC, SELFPAY ==
[2024-07-22 08:58] VITALS: BP 126/82; PULSE 80; O2SAT 97; BMI 29.1
--- NOTE | 2024-07-22 08:58 | MHC.PC.OV ---
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: No Accompanied by: Self / Same As Patient Allergies No Known Allergies Allergy (Verified 07/22/24 09:18) Medication List - Last Reconciled 07/22/24 by Terry Vega PA-C omeprazole 20 mg PO DAILY 14 days sumatriptan succinate take 1 tab at onset of headache; if no relief may repeat 1 tab after at least 2 hrs; max = 4 tabs/24 hr PO 30 days Tobacco use date assessed: 07/22/24 Dental Screening Dental Screen Date: 07/22/24 Did you have a dental visit in the last 12 months?: Yes Did you have a dental problem in the last 6 months where you did not have access to dental care?: No Was dental information given to patient?: Patient has dentist HPI ANNUAL HPI Details Patient is a 39-year-old male here today for routine annual physical. Patient's past medical history significant for migraine disorder, splenomegaly and elevated LFTs. Did get an ultrasound of his abdomen which did show splenomegaly and signs symptoms consistent with fatty liver disease. Has followed up with Gastroenterology and repeat liver enzymes have improved. Vaccines: declines flu vaccine, UTD Tdap vaccine will await records. 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 1. Little interest or pleasure in doing things: not at all 2. Feeling down, depressed, or hopeless: not at all 3. Trouble falling or staying asleep, or sleeping too much: not at all 4. Feeling tired or having little energy: not at all 5. Poor appetite or overeating: not at all 6. Feeling bad about yourself - or that you are a failure or have let yourself or your family down: not at all 7. Trouble concentrating on things, such as reading the newspaper or watching television: not at all 8. Moving or speaking so slowly that other people could have noticed. Or the opposite - being so fidgety or restless that you have been moving around a lot more than usual: not at all 9. Thoughts that you would be better off or of hurting yourself in some way: not at all Total score: 0 Depression Screening Interpretation: Negative Depression Screening Done: Yes 57797 - PHQ-9 Billing: Yes Source: Developed by Drs. Gil Moreno, Radha Baxter, Juan J Jacobs and colleagues, with an educational aida from [employer]. Thrive Questionnaire Date Thrive assessed: 07/22/24 I am a: Patient What is your living situation today?: I have a steady place to live Within the past 12 months, did the food you bought not last and you didn't have the money to get more?: Never true Within the past 12 months, did you worry whether your food would run out before you got money to buy more?: Never true Do you have trouble paying for medicines?: No Do you have trouble getting transportation to medical appointments?: No Do you have trouble paying your heating and electricity bill?: No Do you have trouble taking care of your child, family member or friend?: No Do you have trouble with day-to-day activities such as bathing, preparing meals, shopping, managing finances, etc.?: No Are you currently unemployed and looking for a job?: No Are you interested in more education?: No Please select the resources that you would like help with: None Currently or been in a relationship where the following occur: No concerns reported THRIVE Score: 0 AUDIT C Alcohol Use Questionnaire (AUDIT-C) 1. How often do you have a drink containing alcohol?: Monthly or less 2. How many drinks containing alcohol do you have on a typical day when you are drinking?: 1 or 2 3. How often do you have six or more drinks on one occasion?: Never Total Score: 1 ROBYN-7 AMB Questionnaire ROBYN-7 Date ROBYN - 7 assessed: 07/22/24 Feeling nervous, anxious, or on edge: 0 = Not at all Not being able to stop or control worryin = Not at all Worrying too much about different things: 0 = Not at all Trouble relaxin = Not at all Being so restless that it is hard to sit still: 0 = Not at all Becoming easily annoyed or irritable: 0 = Not at all Feeling afraid as if something awful might happen: 0 = Not at all Total ROBYN-7 score (0-4 normal; 5-9 mild; 10-14 moderate; 15-21 severe): 0 Source: Developed by Drs. Gil Moreno, Radha Baxter, Juan J Jacobs and colleagues, with an educational aida from [employer]. ROBYN-7 Assessment Billing ROBYN-7 Assessment Tool: ROBYN-7 Assessment 62951 Review of Systems Const Denies body aches, Denies chills, Denies excessive sweating, Denies fatigue, Denies fever(s) and Denies headache(s) Eyes Denies blurry vision ENT Denies dysphagia, Denies vertigo, Denies dizziness, Denies headache(s), Denies hearing loss and Denies tinnitus Card Denies chest pain, Denies chest pain with activity, Denies syncope, Denies irregular heart rhythm and Denies dyspnea Resp Denies chest congestion, Denies cough, Denies hemoptysis, Denies dyspnea and Denies wheezing GI Denies abdominal pain, Denies melena, Denies hematochezia, Denies coffee ground emesis, Denies dysphagia, Denies diarrhea, Denies nausea and Denies vomiting Denies difficulty urinating, Denies dysuria, Denies urinary frequency, Denies urinary hesitancy and Denies urinary urgency Musc Denies arthralgias, Denies limited range of motion, Denies muscle cramps and Denies muscle weakness Skin/Breast Denies rash and Denies skin ulcer Neuro Denies Abnormal speech present, Denies confusion, Denies vertigo, Denies dizziness, Denies syncope, Denies headache(s), Denies memory loss and Denies seizure-like activity Psych Denies anxiety, Denies confusion, Denies depression, Denies memory loss, Denies panic attacks and Denies paranoia Endo Denies excessive sweating, Denies fatigue, Denies flushing, Denies polydipsia and Denies polyuria Aller/Immun Denies wheezing Physical exam (Primary Care) Vital Signs: Last Vital Signs Pulse 80 07/22/24 08:58 BP 126/82 07/22/24 08:58 Pulse Ox 97 07/22/24 08:58 Oxygen Delivery Method Room Air 07/22/24 08:58 BMI result Body Mass Index 29.1 Tobacco/Smoking Status: Tobacco use Status Tobacco use date assessed 07/22/24 07/22/24 09:05 Patient Tobacco Use Status Never used Tobacco 07/22/24 09:05 e-Cigarette/Vaping Use Never Used 07/22/24 09:05 PHQ-9: PHQ-9 Score PHQ-9: Total score 0 07/22/24 09:05 Depression Screening Interpretation: Negative Thrive Assessment: Date of Thrive Assessment Date Thrive assessed 07/22/24 07/22/24 09:05 Currently or been in a relationship where the following occur: No concerns reported Const General: cooperative, comfortable, no acute distress, alert and awake; No confusion Orientation/consciousness: oriented to person, oriented to place, patient oriented x3 and No confusion HENMT Head: Yes normocephalic Ears: external ears normal and TM's normal bilaterally Face and sinus: No sinus tenderness Mouth: Normal oral and palatal mucosa present and tongue normal Teeth and gingiva: dentition normal and gingiva normal Throat: Yes posterior oropharynx normal, Yes tonsils normal and Yes uvula midline Eyes Conjunctivae: conjunctivae normal Sclerae: sclerae normal Pupils: Equal, round and reactive pupils present EOM: EOMs intact bilaterally Direct Ophthalmoscopy: No no photophobia Neck Neck: Yes no lymphadenopathy, No tender and Yes no JVD Thyroid: Thyroid normal Carotids: no bruits Chest Chest palpation & inspection: no tenderness Resp Effort & Inspection: normal respiratory effort, no audible wheezes, not labored and no stridor Auscultation: no crackles, no rales, no rhonchi and no wheezes Cardio Jugular venous distension: no JVD Rate: regular rate, not bradycardic and not tachycardic Rhythm: regular rhythm Bruits: no carotid bruits Peripheral pulses: Peripheral pulses 2+ throughout GI Inspection: Yes normal to inspection, No abdominal wall ecchymosis and No visible herniation Palpation (GI): Soft to palpation, nontender, no guarding, not rigid and No hepatosplenomegaly present Auscultation: normoactive bowel sounds General: Yes no CVA tenderness Back/Spine/Pelvis Back: no CVA tenderness and No back tenderness Cervical Spine: cervical ROM normal Thoracic/Lumbar Spine: thoracic and lumbar spine normal to inspection, straight leg raise negative bilaterally, No thoraco-lumbar ROM limited and No lumbar spinal tenderness Skin Lesions: no lesions Rashes: no rashes Wounds: no wounds Neuro General: oriented to person, oriented to place, patient oriented x3, CN's II-XI intact bilaterally and No confusion Cranial nerves: Yes Equal, round and reactive pupils present and Yes Normal accommodation reflex present Cognition (Neuro): normal cognition Speech: No Abnormal speech present Gait exam (Neuro): Normal gait present Motor exam (neuro): 5/5 motor strength present throughout Extrem Right upper extremity: full ROM; no cyanosis Left upper extremity: full ROM; no cyanosis Right lower extremity: no edema Left lower extremity: no edema Psych Appearance: grossly normal Mental Status: mental status grossly normal Affect: normal affect Attitude: cooperative Thought process: Normal thought process present Coding Level of Care Code Est Pt Prev Care 40-64y(17036) Diagnoses Annual physical exam Z00.00 Migraine without status migrainosus, not intractable, unspecified migraine type G43.909 Migraine type: unspecified Status migrainosus presence: without status migrainosus Intractability: not intractable Elevated LFTs R79.89 Gastroesophageal reflux disease without esophagitis K21.9 Esophagitis presence: without esophagitis Additional Codes PHQ-9 - 62198 - PHQ-9 Billing: Yes ([id number]) ROBYN-7 Assessment Billing - ROBYN-7 Assessment Tool: ROBYN-7 Assessment 15421 ([id number]) Assessment & Plan Assessment & Plan (1) Annual physical exam: Code(s): Z00.00 - Encounter for general adult medical examination without abnormal findings Category: Medical Plan: As per HPI (2) Migraine: Code(s): G43.909 - Migraine, unspecified, not intractable, without status migrainosus Category: Medical Qualifiers: Migraine type: unspecified Status migrainosus presence: without status migrainosus Intractability: not intractable Qualified Code(s): G43.909 - Migraine, unspecified, not intractable, without status migrainosus Plan: Reports his migraines have pretty well controlled, does use sumatriptan from time to time for migraine which work wonderfully. (3) Elevated LFTs: Code(s): R79.89 - Other specified abnormal findings of blood chemistry Category: Medical Plan: Patient followed by gastroenterology. Most recent liver enzymes have stabilized. (4) GERD (gastroesophageal reflux disease): Code(s): K21.9 - Gastro-esophageal reflux disease without esophagitis Category: Medical Qualifiers: Esophagitis presence: without esophagitis Qualified Code(s): K21.9 - Gastro-esophageal reflux disease without esophagitis Plan: He has not had to use much PPI therapy. Has changed his diet to reduce his GERD symptoms.
--- OUTSIDE RECORDS SUMMARY | 2024-07-22 09:28 | XMS_ITS | Clinical Summary ---
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 Name Role Phone Unavailable Primary Care Provider Unavailabl e Medical History Medical History Date Comments Depression DX:Depression Tobacco use disorder DX:Tobacco use disorder Family History Medical History Relation Name Comments Diabetes Aunt 1 Hypertension Father Diabetes Maternal Grandmother Relation Name Status Comments Aunt 1 Aunt 2 Father Maternal Grandmother Social History Tobacco Use Types Packs/Day Years Used Date Smoking Tobacco: Every Day Cigarettes Alcohol Use Standard Drinks/Week Comments Yes 8.3 (1 standard drink = 0.6 oz p ure alcohol) Sex and Gender Information Value Date Recorded Sex Assigned at Not on file Legal Sex Male 5:59 AM EST Gender Identity Not on file Sexual Orientation Not on file Obstetrics History Plan of Treatment Health Maintenance Due Date Last Done Comments DTaP,Tdap,and Td Vaccines (1 - Tdap) 2003 Hepatitis B Vaccines (1 of 3 - 19+ 3-dose series) 2003 COVID-19 Vaccine (2023-2 5 season) 2024 Influenza Vaccine (#1) 2024 Meningococcal ACWY Vaccine Aged Out 12/05/2002 N o longer eligible based on patient's age to complete this topic HIB Vaccines Aged Out No longer eligi ble based on patient's age to complete this topic HPV Vaccines Aged Out No longer eligi ble based on patient's age to complete this topic Hepatitis A Vaccines Aged Out No long er eligible based on patient's age to complete this topic IPV Vaccines Aged Out No longer eligi ble based on patient's age to complete this topic MMR Vaccines Aged Out No longer eligi ble based on patient's age to complete this topic Meningococcal B Vacine Aged Out No lo nger eligible based on patient's age to complete this topic Pneumococcal Vaccine: Pediat rics (0 to 5 Years) and At-Risk Patients (6 to 64 Years) Aged Out No longer eligi ble based on patient's age to complete this topic RSV Immunization Patients Un niyah 20 months Aged Out No longer eligible b ased on patient's age to complete this topic Varicella Vaccines Aged Out No longer eligible based on patient's age to complete this topic
== END 2024-07-22 09:31 | disposition home or self-care (01) ==
PROVIDERS: PCP Physician Assistant; Visit Provider Physician Assistant
DX: Z00.00 Encounter for general adult medical examination without abnormal findings (principal); G43.909 Migraine, unspecified, not intractable, without status migrainosus; R79.89 Other specified abnormal findings of blood chemistry; K21.9 Gastro-esophageal reflux disease without esophagitis

== ENCOUNTER → 2024-07-22 08:53 | Outpatient (BNVA) | payer BC, SELFPAY | PROVIDERS: PCP Physician Assistant; Visit Provider Physician Assistant | DX: Z00.00 Encounter for general adult medical examination without abnormal findings (principal); G43.909 Migraine, unspecified, not intractable, without status migrainosus; R79.89 Other specified abnormal findings of blood chemistry; K21.9 Gastro-esophageal reflux disease without esophagitis | CPT/HCPCS: 96127 ==

== ENCOUNTER 2024-08-14 08:54 | Outpatient (AMB) | payer BC, SELFPAY ==
--- NOTE | 2024-08-14 08:58 | MHC.OFFVIS ---
Intake Visit Reasons: vasectomy consult Intake Note: New patient presents today for initial visit for vasectomy consult Urology Medication:none Blood Thinner:none Antibiotic Allergies:none Allergies No Known Allergies Allergy (Verified 08/14/24 08:59) HPI Comments Details: Guero is a pleasant 39-year-old male patient of . He has a past medical history of anxiety, depression, and migraines. He presents to the office today for - vasectomy evaluation Vasectomy evaluation The patient presents for vasectomy consultation.? 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 Vasectomy as intended as a permanent form of control. Printed information and literature was provided to the patient. Overall there is a one in 2500 failure rate. This can occur at any time after vasectomy. Risks were discussed highlighting hematoma, spermatocele, epididymal congestion, development of sperm antibodies, and development of chronic pain estimated between 1-5%. The procedure was reviewed in detail. Anatomical diagrams of the male genitalia were used to explain the location of the vas deferens. The vas deferens will be transected, the proximal end will be cauterized, a metal clip would be applied to separate the 2 vas deferens ends. It was explained the procedure will be done in the office and takes approximately 10-15 minutes. Less common problems that arise with vasectomy include hematoma, bleeding, allergic reaction to anesthetic, epididymal infection, epididymal congestion, scrotal discomfort, spermatic leak, spermatic granuloma and the possibility of antisperm antibodies. He understands these risks and wishes to proceed. Consent was signed at the office today. He also understands that it takes 12 weeks for sperm to fully clear the system. He will need to provide a semen sample at 12 weeks and if this is not clear a 2nd sample at 16 weeks. Medical clearance to stop using protection will only be provided if he satisfies published criteria for sperm clearance. 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 Cognitive needs: No Hearing needs: No Vision needs: No Review of Systems Const All systems reviewed & are unremarkable except as noted in HPI and below Physical Exam Const General: cooperative, healthy appearing, comfortable, no acute distress, well developed, alert and awake Orientation/consciousness: patient oriented x3 Limitations: no limitations HEENT Head: Yes normal to inspection, Yes normocephalic and Yes atraumatic Ears: hearing grossly normal bilaterally Eyes General: appearance normal, both eyes and all related structures Neck Neck: Yes normal visual inspection and Yes trachea midline Chest Chest palpation & inspection: normal inspection of the chest Resp Effort & Inspection: normal respiratory effort and able to speak in complete sentences Cardio Rate: regular rate GI Inspection: Yes normal to inspection General: Yes no CVA tenderness Back/Spine/Pelvis Back: no CVA tenderness Skin General skin exam: no rashes or lesions noted Neuro General: patient oriented x3 Extrem General: Yes normal to inspection Psych Appearance: grossly normal and well kempt Mental Status: mental status grossly normal Speech and movement: Normal speech and movement present and Clear speech present Affect: normal affect Attitude: cooperative Thought process: Normal thought process present Thought content: Normal thought content present Insight: Fair insight present (Psych) Judgement: Fair judgement present (Psych) Assessment & Plan Assessment & Plan (1) Encounter for vasectomy: Code(s): Z30.2 - Encounter for sterilization Category: Medical (2) Anxiety about health: Code(s): R45.89 - Other symptoms and signs involving emotional state Category: Medical Plan Vasectomy procedure was discussed at length All questions were answered Consent was obtained Prescriptions provided; we discussed importance of bringing medication to office day of procedure. We discussed fellows kit verses semen analysis in office. Will schedule for vasectomy with Dr. Ward as discussed Follow-up per doctor's orders; or sooner with any issues, concerns, and or questions. Medications: New diazepam (Valium) Bring to office day of procedure 2 mg PO DAILY 2 tabs 0RF anxiety R45.89 - Other symptoms and signs involving emotional state tramadol Bring to office day of procedure 50 mg PO Q8H PRN 7 tabs 0RF pain N43.3 - Hydrocele, unspecified Patient Instructions: The patient had an opportunity to ask questions regarding the treatment plan. All questions were answered. Physical exam, labs, and imaging were discussed and reviewed in detail. As well as risks, benefits, and discussion of treatment choices. No major barriers to understanding were identified. The patient expressed understanding and agreement with the above treatment plan. The patient was made aware they should contact our office by phone for worsening of their current condition, the appearance of new symptoms, or with any questions or concerns. Compliance is encouraged with any medications and follow up testing that is ordered. It is a privilege to be allowed the opportunity to participate in? your urological care.? Again, if you have any questions or concerns If you have any questions or concerns please do not hesitate to contact me. The office is [phone]. This note is constructed using voice recognition software. While every effort has been made to ensure accuracy early childhood services coordinator errors may have been included. Yours sincerely, TAMIKA Villavicencio Coding Level of Care Code New Pt Level 4 (07458) Diagnoses Encounter for vasectomy Z30.2 Anxiety about health R45.89
--- OUTSIDE RECORDS SUMMARY | 2024-08-14 09:42 | XMS_ITS | Clinical Summary ---
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
== END 2024-08-14 09:30 | disposition home or self-care (01) ==
LOC: HO.HUSH 08:55
PROVIDERS: PCP Physician Assistant; Visit Provider Nurse Practitioner Family
DX: Z30.2 Encounter for sterilization (principal); R45.89 Other symptoms and signs involving emotional state
CPT/HCPCS: 99204

== ENCOUNTER → 2024-08-14 08:54 | Outpatient (BNVA) | payer BC, SELFPAY | PROVIDERS: PCP Physician Assistant; Visit Provider Nurse Practitioner Family ==

== ENCOUNTER 2024-09-23 15:07 | Outpatient (AMB) | payer BC, SELFPAY ==
--- NOTE | 2024-09-23 15:13 | MHC.OFFVIS ---
Vital Signs 09/23/24 15:15 Height 5 ft 10 in Weight 202 lb 13.204 oz BMI 29.1 BP 139/93 H Blood Pressure Location Lt brachial Position Sitting Pulse 90 Intake Visit Reasons: f/u elevated lft Intake Note: Guero presents in the office as a follow up for elevated LFTs. CC: States that he has no concerns at this time. Improvement Spec Required: No Allergies No Known Allergies Allergy (Verified 09/23/24 15:15) HPI Comments Details: 38 y.o M referred for abnormal US. Reports many months ago had L sided chest and abd pain that radiated to his shoulder. Pain subsided in a few weeks. Sometimes gets tightness of that area tamy after eating food. Pt drinks etOH 2 drinks 4-5 times a week. Non smoker. No OTC or CAM. 02/14/24: Reports had some more drinks during a vacation in November but since then has just consumed 1 beer per week. Sometimes also takes 1 glass of whiskey a week. Has a one week old baby girl at home now so definitely motivated to make positive changes. 09/23/24: Has cut down significantly but not completely sober. Has 1 drink 3-5 times a week. No hard liquor. Has not had any further L sided chest/abd pain x 6 months at least. 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 Cognitive needs: No Hearing needs: No Vision needs: No Review of Systems Const All systems reviewed & are unremarkable except as noted in HPI and below Physical Exam Vital Signs: Last Vital Signs Pulse 90 09/23/24 15:15 BP 139/93 H 09/23/24 15:15 BMI result Body Mass Index 29.1 No apparent distress Nonicteric Abdomen soft, nondistended Alert and oriented x3, normal gait Assessment & Plan Assessment & Plan (1) Elevated LFTs: Code(s): R79.89 - Other specified abnormal findings of blood chemistry Category: Medical (2) Splenomegaly: Code(s): R16.1 - Splenomegaly, not elsewhere classified Category: Medical (3) Alcohol use disorder: Code(s): F10.90 - Alcohol use, unspecified, uncomplicated Plan Labs pending from last visit. Reordered. Again reviewed importance of cutting down completely. Will not be surprised if transaminases back up again. Plan: - Labs ordered - Follow up 6 months Orders: Orders Complete Blood Count no Diff Today R79.89 - Other specified abnormal findings of blood chemistry Comprehensive Met. Panel Today R79.89 - Other specified abnormal findings of blood chemistry IRON PROFILE Today R79.89 - Other specified abnormal findings of blood chemistry Mitochondrial Antibody Today R79.89 - Other specified abnormal findings of blood chemistry Smooth Muscle Antibody Today R79.89 - Other specified abnormal findings of blood chemistry ETTA Reflex Titer and Pattern Today R79.89 - Other specified abnormal findings of blood chemistry Alpha Fetoprotein Today R79.89 - Other specified abnormal findings of blood chemistry Lipid Panel Today R79.89 - Other specified abnormal findings of blood chemistry Hemoglobin A1c Today R79.89 - Other specified abnormal findings of blood chemistry Phosphatidylethanol, Blood Today R79.89 - Other specified abnormal findings of blood chemistry Liver Kidney Microsomal Ab Today R79.89 - Other specified abnormal findings of blood chemistry TSH reflex Free T4 Today R79.89 - Other specified abnormal findings of blood chemistry Coding Level of Care Code Est Pt Level 3 (26768) Diagnoses Elevated LFTs R7. Splenomegaly R16.1 Alcohol use disorder F10.90
[2024-09-23 15:15] VITALS: BP 139/93; PULSE 90; BMI 29.1
--- OUTSIDE RECORDS SUMMARY | 2024-09-23 16:44 | XMS_ITS | Clinical Summary ---
Author Organization [facility] it Address [address] [place] [address] Care Team Providers Care Terrazzo Helper Name Role Phone Unavailable Primary Care Provider [...] Vaccine (2023-2 5 season) 2024 Influenza Vaccine (Season Ended) 2025 Meningococcal ACWY Vaccine Aged Out 12/05/2002 N [...] age to complete this topic Meningococcal B Vaccine Aged Out No l onger eligible based on patient's age to complete [...]
== END 2024-09-23 15:38 | disposition home or self-care (01) ==
LOC: HO.HGI 15:08
PROVIDERS: PCP Physician Assistant; Visit Provider Internal Medicine
DX: R79.89 Other specified abnormal findings of blood chemistry (principal); R16.1 Splenomegaly, not elsewhere classified; F10.90 Alcohol use, unspecified, uncomplicated
CPT/HCPCS: 99213

== ENCOUNTER 2024-10-09 14:51 | Outpatient (AMB) | payer BC, SELFPAY ==
--- OUTSIDE RECORDS SUMMARY | 2024-10-09 14:58 | XMS_ITS | Clinical Summary ---
Author Organization [facility] it Address [address] [place] [address] Care Team Providers Care Early Childhood Associate Teacher Name Role Phone Unavailable Primary Care Provider [...]
--- NOTE | 2024-10-09 15:29 | MHC.OFFVIS ---
Intake Visit Reasons: vasectomy Intake Note: Patient is present for VASETOMY Urology Medication:NONE Antibiotic Allergy:NONE Blood Thinner:NONE Tab Card Press Operator Required: No Allergies No Known Allergies Allergy (Verified 10/09/24 15:32) HPI Comments Details: Guero is a pleasant 39-year-old male patient of . He has a past medical history of anxiety, depression, and migraines. He presents to the office today for - vasectomy procedure Vasectomy procedure The patient presents for vasectomy consultation.? 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 [employer] Medical History Mixed anxiety and depressive disorder Migraine Surgical History History of esophagogastroduodenoscopy (EGD) Hx of appendectomy Family History Father High cholesterol Mother Breast cancer Parkinson's disease Social History Housing: House Alcohol intake: current Alcohol intake frequency: a few times a month Alcohol type: beer Patient Tobacco Use Status: Never used Tobacco e-Cigarette/Vaping Use: Never Used service: No Current occupational status: employed 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 [employer] Cognitive needs: No Hearing needs: No Vision needs: No Review of Systems Const Denies chills and Denies fever(s) Card Reports no additional complaints and Denies syncope Resp Denies cough GI Denies abdominal pain and Denies heartburn Reports as per HPI and Denies change in libido Neuro Denies syncope Psych Denies change in libido Endo Denies change in libido Physical Exam Const General: cooperative, healthy appearing, comfortable and no acute distress Orientation/consciousness: patient oriented x3 HEENT Face and sinus: Yes normal facial exam Mouth: moist mucous membranes Neck Neck: Yes normal visual inspection, Yes full ROM and Yes trachea midline Chest Chest palpation & inspection: normal inspection of the chest Resp Effort & Inspection: normal respiratory effort, able to speak in complete sentences and no respiratory distress GI Inspection: Yes normal to inspection Back/Spine/Pelvis Cervical Spine: normal cervical lordosis Thoracic/Lumbar Spine: thoracic and lumbar spine normal to inspection Skin General skin exam: no rashes or lesions noted Neuro General: patient oriented x3, gait normal, tone normal and moves all extremities Extrem General: Yes normal to inspection and Yes capillary refill normal Office Procedures Vasectomy Details: Preoperative diagnosis: Anxiety regarding Postoperative diagnosis: Anxiety regarding unplanned Procedure: Bilateral vasectomy Informed consent had been completed. Preoperative and postoperative instructions were provided to the patient. The patient has transportation to home identified at the completion of the procedure. Anti-anxiolytic prescription medication had been taken after consent verification and all questions answered. Tylenol with Codeine pain medication was also provided. The penis was elevated using a rubber band that was attached to the patient's shirt. Both vasa were palpated through the skin using a 3 finger technique and the penoscrotal junction was prepped with Betadine. After Betadine application the left vas was elevated using a 3 finger grasping technique. 1% lidocaine was used to create a subdermal bubble. Further anesthetic was then advanced using the 25-gauge needle along the vasa in a proximal fashion. Approximately 2 minutes were allowed to for local anesthetic uptake. Using the sharp spreading instrument the scrotal skin was spread longitudinally in line with the vasa until the subdermal layer had been divided. The vasa was then elevated from the scrotum using a ring clamp. Care was taken to elevate the superior portion of the vasa by rotating the ring clamp in a caudad direction. The battery powered cautery was used to divide the vasal sheath in a longitudinal direction on the exposed vasa and to strip the vasal sheath from the vasa. A 2nd narrower ring clamp was placed on the exposed vas and used to lift the vas from the vasal sheath. so it grasped the elevated vas. The cautery was used to divide vasal attachments and allow full exposure of a small loop of vasa. The sharp spreading instrument was then used to create a tunnel under the vasa and spread to allow the blood vessels of the vasa to retract from the vasa. A mosquito clamp was placed on the proximal portion of the vas. The battery-powered cautery was used to make a partial division in the proximal vas and then inserted in order to cauterize the proximal end of the vas. This was then cut and allowed to retract into the vasal sheath. The mosquito was then used to twist the vasa 180 degrees creating a fascial interposition. Using a 4-0 chromic suture the fascial interposition was sutured closed. The distal portion of the vas was then cut in order to obtain a segment of vasa. The vasa were allowed to retract back into the scrotum. A small snap was then used to approximate the skin edges and allow hemostasis without placement of a suture. A similar procedure was repeated on the right side. He tolerated the procedure well. Triple antibiotic was applied. A gauze was applied. An ice pack was applied to assist with minimizing swelling. Postoperative instructions were confirmed. He understands the need to continue to use control methods. A semen sample should be brought for inspection under the microscope in 10-12 weeks. CPT 77597 33147 - Vasectomy Office Meds lidocaine (PF) 10 mg/mL (1 %) injection solution Performing Provider: Artie Ward MD Performing Location: [facility] Administered by: Heide Alvarez RN on 10/09/24 15:29 Dose Route Admin Location Dispensed Lot Number Expiration Date [facility] Doorkeeper 2 mL Infiltration 10 mL Assessment & Plan Assessment & Plan (1) Anxiety about health: Code(s): R45.89 - Other symptoms and signs involving emotional state Category: Medical Plan Three-month follow-up check semen Orders: Orders AMB Vasectomy Today Z30.2 - Encounter for sterilization Patient Instructions: This note is constructed using voice recognition software. While every effort has been made to ensure accuracy certified registered nurse anesthetist errors may have been included. Imaging studies, laboratory and physical exam results were discussed and reviewed in detail. No major barriers to patient understanding were identified. An opportunity to ask questions regarding the treatment plan was provided. All questions were answered. The patient expressed understanding and agreement with the above treatment plan. The patient is aware they should contact our office by phone for worsening of their current condition or the appearance of new urologic symptoms. Compliance is encouraged with any medications and followup testing that is ordered. It is a privilege to participate in the urologic care of your patient. If you have any questions or concerns regarding treatment for the above conditions, or other urologic issues, please do not hesitate to contact me. The office telephone contact is [phone]. Sincerely, Dr Artie Ward MD, [facility] - Urology Compassionate Specialist Care for the Genitourinary System Coding Level of Care Code Procedure Only Diagnoses Anxiety about health R45.89 CPT Codes Office Procedure - CPT: 09412 - Vasectomy ([id number])
== END 2024-10-09 17:06 | disposition home or self-care (01) ==
LOC: HO.HUSH 14:52
PROVIDERS: PCP Physician Assistant; Visit Provider Urology
DX: Z30.2 Encounter for sterilization (principal); R45.89 Other symptoms and signs involving emotional state
CPT/HCPCS: 55250

== ENCOUNTER → 2024-10-09 14:51 | Outpatient (BNVA) | payer BC, SELFPAY | PROVIDERS: PCP Physician Assistant; Visit Provider Urology | DX: Z30.2 Encounter for sterilization (principal); F41.8 Other specified anxiety disorders | CPT/HCPCS: 55250; J2003 ==

== ENCOUNTER 2024-10-11 10:56 | Emergency (ER) | payer BC, SELFPAY ==
--- NOTE | ~2024-10-11 | US_ITS ---
EXAMINATION: US SCROTUM CLINICAL INFORMATION: Left testicular pain.. COMPARISON: None available. TECHNIQUE: A sonogram of the scrotum was performed assessing rogers-scale appearance and color Doppler flow. Spectral Doppler analysis of the arterial and venous flow were performed in the testes bilaterally. FINDINGS: RIGHT: Right testicle measures 5.0 x 2.4 x 3.2 cm, volume 19.7 mL. Solid or cystic lesion detected by the technologist. Spectral Doppler analysis of the arterial and venous flow is normal in the right testis. Right epididymal head is normal in size. There is a 4 mm cyst, right epididymis head. There is no free fluid in the scrotal sac. There is no prominence of the pampiniform plexus. Right epididymal Doppler flow is normal. LEFT: Left testicle measures 4.5 x 2.7 x 3.7 cm, volume 23.4 mL. No solid or cystic lesions in the testicle detected by the technologist. Spectral Doppler analysis of the arterial and venous flow is normal in the left testis. Left epididymal head is normal in size. There is prominent pampiniform plexus during Valsalva maneuvers. There is no gross free fluid in the scrotal sac. Left epididymal Doppler flow is normal. US/US scrotum doppler IMPRESSION: No testicular torsion. Varicocele, left-sided. Electronically signed by: Tadeo Rodriguez MD 10/11/2024 12:42 PM EDT
--- NOTE | ~2024-10-11 | US_ITS ---
EXAMINATION: US SCROTUM CLINICAL INFORMATION: Left testicular pain.. COMPARISON: None available. TECHNIQUE: A sonogram of the scrotum was performed assessing rogers-scale appearance and color Doppler flow. Spectral Doppler analysis of the arterial and venous flow were performed in the testes bilaterally. FINDINGS: RIGHT: Right testicle measures 5.0 x 2.4 x 3.2 cm, volume 19.7 mL. Solid or cystic lesion detected by the technologist. Spectral Doppler analysis of the arterial and venous flow is normal in the right testis. Right epididymal head is normal in size. There is a 4 mm cyst, right epididymis head. There is no free fluid in the scrotal sac. There is no prominence of the pampiniform plexus. Right epididymal Doppler flow is normal. LEFT: Left testicle measures 4.5 x 2.7 x 3.7 cm, volume 23.4 mL. No solid or cystic lesions in the testicle detected by the technologist. Spectral Doppler analysis of the arterial and venous flow is normal in the left testis. Left epididymal head is normal in size. There is prominent pampiniform plexus during Valsalva maneuvers. There is no gross free fluid in the scrotal sac. Left epididymal Doppler flow is normal. US/US scrotum IMPRESSION: No testicular torsion. Varicocele, left-sided. Electronically signed by: Tadeo Rodriguez MD 10/11/2024 12:42 PM EDT
[2024-10-11 10:59] VITALS: BP 152/108; PULSE 85; RESP 18; TEMP 36.6; O2SAT 97; BMI 29.4
--- NOTE | 2024-10-11 11:01 | ED_ITS ---
HPI - General Adult General Chief complaint: Urogenital-Male Stated complaint: Bleeding Post Vasectomy 10/10/24 Time Seen by Provider: 10/11/24 11:44 Source: patient and family (patient's ) Mode of arrival: ambulatory Limitations: no limitations History of Present Illness ED Provider: Yvette Dior PA-C HPI narrative: Patient is a 39 year old assigned male at with a history of GERD and vasectomy on 10/09/[address] Ward presenting to the emergency department today with left testicular pain. Patient states that he is having left sided testicular pain that radiates into his lower abdomen after his vasectomy and he is concerned. Patient denies any dizziness, lightheadedness, abdominal pain, nausea, vomiting, fever, chills, blurry vision, double vision, loss of vision, chest pain, difficulty breathing, shortness of breath, back pain, night sweats, pain with urination, increased urinary frequency, increased urinary urgency, blood in his urine or stool, syncope or a near syncopal episode, recent trauma or falls, bowel incontinence, bladder incontinence, or any other complaints at this time. Location: left (testicle) Related Data Previous Rx's ?Medication ?Instructions ?Recorded omeprazole 20 mg capsule,delayed 20 mg PO DAILY 14 days #14 caps 07/18/23 release sumatriptan succinate 25 mg tablet See Rx Instructions PO .COMPLEX 30 07/18/23 days #9 tabs diazepam 2 mg tablet (Valium) 2 mg PO DAILY anxiety #2 tabs 08/14/24 tramadol 50 mg tablet 50 mg PO Q8H PRN pain #7 tabs 08/14/24 Allergies Allergy/AdvReac Type Severity Reaction Status Date / Time No Known Allergies Allergy Verified 10/11/24 11:00 Review of Systems Constitutional: Constitutional: Reports no additional constitutional complaints, Denies chills, Denies fever(s) and Denies night sweats Eyes: Eyes: Reports no additional eye complaints, Denies blurry vision, Denies change in vision, Denies diplopia, Denies eye discharge, Denies loss of vision and Denies eye pain ENT: Denies dizziness Cardiovascular: Cardiovascular: Reports no additional cardiovascular complaints, Denies chest pain, Denies lightheadedness, Denies Loss of Consciousness and Denies dyspnea Respiratory: Respiratory: Reports no additional respiratory complaints and Denies dyspnea Gastrointestinal: Gastrointestinal: Reports no additional gastrointestinal complaints, Denies abdominal pain, Denies melena, Denies hematochezia, Denies change in bowel habits and Denies change in stool character Genitourinary: Genitourinary: Reports no additional male genitourinary complaints, Denies hematuria, Denies oliguria, Denies difficulty urinating, Denies dysuria, Denies urinary frequency, Denies urinary hesitancy, Denies urinary incontinence and Denies urinary urgency Comments: left sided testicular pain Musculoskeletal: Musculoskeletal: Reports no additional musculoskeletal complaints, Denies numbness and Denies tingling Neurologic: Denies dizziness, Denies loss of vision, Denies numbness and Denies tingling Psychiatric: Psychiatric: Reports no additional psychiatric complaints Endocrine: Endocrine: Reports no additional endocrine complaints Hematologic/Lymphatic: Hematologic/Lymphatic: Reports no additional hematologic/lymphatic complaints Allergic/Immunologic: Allergic/Immunologic: Reports no additional allergic/immunologic complaints PMFSH Past Medical History Attestation statement: The following information was validated with the patient. (patient's provided additional history and confirmed the history provided by the patient.) Source: old records reviewed, obtained from family (patient's provided additional history and confirmed the history provided by the patient.) and nursing notes reviewed Medical History Mixed anxiety and depressive disorder Migraine Surgical History History of esophagogastroduodenoscopy (EGD) Hx of appendectomy Family History Family History Father High cholesterol Mother Breast cancer Parkinson's disease Social History Social History Housing: House Alcohol intake: current Alcohol intake frequency: a few times a month Alcohol type: beer Patient Tobacco Use Status: Never used Tobacco e-Cigarette/Vaping Use: Never Used Advance Directives: No Advance Directives Information Provided: No Do you have a plan to hurt others: No Plan service: No Current occupational status: employed 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 Cognitive needs: No Hearing needs: No Vision needs: No Physical Exam ED Vital Signs: Vital Signs - 24 hr 10/11/24 10:59 10/11/24 13:34 Temperature 97.8 F 97.8 F Pulse Rate 85 85 Respiratory Rate 18 18 Blood Pressure 152/108 H 152/108 H Pulse Oximetry 97 97 Oxygen Delivery Method Room Air Room Air BMI result Body Mass Index 29.4 Const General: cooperative, no acute distress, alert and awake Nutritional Appearance: well nourished Orientation/consciousness: patient oriented x3 HENMT Head: Yes normal to inspection and Yes atraumatic Ears: hearing grossly normal bilaterally and external ears normal General nose exam: Normal external nose present, no nasal discharge noted and no epistaxis Face and sinus: Yes normal facial exam, No abrasion and No laceration Mouth: Normal oral and palatal mucosa present, no drooling and no muffled voice Eyes General: appearance normal, both eyes and all related structures Periorbital: periorbital findings normal Eyelids: Yes eyelids normal Conjunctivae: conjunctivae normal Pupils: Equal, round and reactive pupils present EOM: EOMs intact bilaterally Neck Neck: Yes normal visual inspection, Yes full ROM and Yes no lymphadenopathy Resp Effort & Inspection: normal respiratory effort and able to speak in complete sentences Other: scrotum swollen with bruising - consistent with 2 days post-op from vasectomy. Neuro General: patient oriented x3, moves all extremities and CN's II-XI intact bilaterally Cranial nerves: Yes Equal, round and reactive pupils present Cognition (Neuro): normal cognition Extrem General: Yes normal to inspection, Yes full ROM and Yes capillary refill normal Psych Appearance: grossly normal Mental Status: mental status grossly normal Affect: normal affect Attitude: cooperative Thought process: Normal thought process present Thought content: Normal thought content present Insight: Good insight present (Psych) Course Course Course Narrative: RME, this is a rapid medical exam performed by Ken Cervantes please refer to primary provider for complete H&P- 39-year-old male presents for evaluation left scrotal pain and abdominal pain. He reports having had a vasectomy 2 days ago on 10/09/[address] Ward. Plan for ultrasound, urinalysis. Medical Decision Making Medical Decision Making MDM Narrative: Patient is a 39 year old assigned male at with a history of GERD and vasectomy on 10/09/[address] Ward presenting to the emergency department today with left testicular pain. Patient's physical exam was as noted in the physical exam portion of this note. Patient's urine showed no acute process. Patient's scrotal US showed left varicocele. I spoke to Dr. Ward who recommended discharging the patient home with pain management. I explained my physical exam findings as well as all test results to the patient and the patient's . I answered all questions asked by the patient and the patient's . Patient declined any pain medication at this time. I stressed the importance of the patient taking his medication as directed (either prescribed or as the over the counter packaging recommends). I stressed the importance of the patient following up with his primary care provider and with his urologist as needed. I stressed the importance of the patient returning to the emergency department immediately if his symptoms were to worsen or if he were to develop any dizziness, shortness of breath, difficulty breathing, chest pain, blurry vision, loss of vision, nausea, vomiting, abdominal pain, fever, chills, back pain, or any other complaints. Patient and the patient's verbalized agreement and understanding with this treatment plan and discharge. Differential Diagnosis Differential Diagnoses: The differential diagnosis associated with the presentation includes Post-op pain Normal post-operative course Admission/Observation Consideration of admission/observation: Escalation of care including admission/observation considered Patient would have been admitted to the hospital had his work up had any findings where hospital admission was appropriate and his clinical presentation warranted hospital admission. Consult Healthcare Provider Management of the patient was discussed with: Supervisor Telephone Answering Service (spoke with Dr. Ward as noted in the MDM Rationale portion of this note. ) Lab Data [facility] Lab Attestation statement: I reviewed the patient's lab results. My interpretation of these results are in the MDM Rationale portion of this note. Labs: Lab Results 10/11/24 Range/Units 11:50 Urine Color Yellow Urine Appearance Clear Urine pH 7.5 (5.0-9.0) Ur Specific [place] 1.020 (1.005-1.025) Urine Protein Negative (Neg-Trace) mg/dL Urine Glucose (UA) Negative (Negative) mg/dL Urine Ketones Negative (Negative) mg/dL Urine Blood Negative (Negative) Urine Nitrite Negative (Negative) Ur Leukocyte Esterase Negative (Negative) Urine RBC 0-2 (0-2) /HPF Urine WBC 0-5 (0-5) /HPF Ur Squamous Epith Cells 0-2 (0-2) /HPF Urine Bacteria None Seen (None Seen) Hyaline Casts 0-2 (0-2) /LPF Independent Interpretation I performed an independent interpretation of an: Ultrasound Interpretation: My interpretation is in agreement with the radiologist's impression of this imaging study. EXAMINATION: US SCROTUM CLINICAL INFORMATION: Left testicular pain.. COMPARISON: None available. TECHNIQUE: A sonogram of the scrotum was performed assessing rogers-scale appearance and color Doppler flow. Spectral Doppler analysis of the arterial and venous flow were performed in the testes bilaterally. FINDINGS: RIGHT: Right testicle measures 5.0 x 2.4 x 3.2 cm, volume 19.7 mL. Solid or cystic lesion detected by the technologist. Spectral Doppler analysis of the arterial and venous flow is normal in the right testis. Right epididymal head is normal in size. There is a 4 mm cyst, right epididymis head. There is no free fluid in the scrotal sac. There is no prominence of the pampiniform plexus. Right epididymal Doppler flow is normal. LEFT: Left testicle measures 4.5 x 2.7 x 3.7 cm, volume 23.4 mL. No solid or cystic lesions in the testicle detected by the technologist. Spectral Doppler analysis of the arterial and venous flow is normal in the left testis. Left epididymal head is normal in size. There is prominent pampiniform plexus during Valsalva maneuvers. There is no gross free fluid in the scrotal sac. Left epididymal Doppler flow is normal. US/US scrotum IMPRESSION: No testicular torsion. Varicocele, left-sided. Electronically signed by: Tadeo Rodriguez MD 10/11/2024 12:42 PM EDT Dictated By: Tadeo Miramontes MD Signed By: Electronically signed by Tadeo Bailon MD 10/11/24 1242 Radiology Impression Discussion of test interpretation with radiology: I have reviewed the radiologist's reading. Independent Historian Clinical information obtained from an independent historian. History obtained from or confirmed by: Spouse (patient's provided additional history and confirmed the history provided by the patient. ) Critical Care Time Critical Care Time Critical Care Time: Yes Total Critical Care Time: 36 Attestation: I spent 36 minutes of Critical Care Time with this patient. This does not include time spent on separately reported billable procedures. Discharge Plan Discharge Clinical Impression: Post-op pain, Varicocele Patient Disposition: Home, Self-Care Instructions: Scrotal Pain (ED) Additional Instructions: Follow up with your primary care provider and as needed - the urologist. Your work up today was reassuring that there is no acute process for your pain. Return to the emergency department immediately if your symptoms worsen or if you develop any numbness, tingling, dizziness, shortness of breath, difficulty breathing, chest pain, blurry vision, loss of vision, nausea, vomiting, abdominal pain, fever, chills, back pain, or any other complaints. Please see the information below about our Patient Portal. If you are not yet enrolled in the [facility] Patient Portal, you will receive an enrollment email invitation following your visit to any [facility] setting. You may also self-enroll in the Patient Portal by visiting our website: [email or web address] The following information is required to access the Patient Portal: - Your [facility] Medical Record Number - Your personal home email address (must match what is in your electronic medical record, Registration staff can assist with this) - Name - Date of Capabilities of the Patient Portal: - Message some providers - View upcoming appointments - Access your health summary, medical history, and visit history - View current conditions and allergies - View procedure and lab results - View your medications, including guidelines, side effects, and precautions - Complete pre-appointment questionnaires requested by your provider - Ready summary reports of your office visits and procedures To access the Patient Portal Mobile Lillian, follow these directions: - Search [employer] in the Lillian Store or Google Play Store - Download the Lillian - Search for [facility] - Enter your login/password Prescriptions: No Action sumatriptan succinate 25 mg tablet See Rx Instructions PO .COMPLEX 30 Days Qty: 9 0RF Rx Instructions: take 1 tab at onset of headache; if no relief may repeat 1 tab after at least 2 hrs; max = 4 tabs/24 hr PO omeprazole 20 mg capsule,delayed release(DR/EC) 20 mg PO DAILY 14 Days Qty: 14 0RF tramadol 50 mg tablet 50 mg PO Q8H PRN (Reason: pain) Qty: 7 0RF Rx Instructions: Bring to office day of procedure diazepam [Valium] 2 mg tablet 2 mg PO DAILY Qty: 2 0RF Rx Instructions: Bring to office day of procedure Referrals: [facility] [Provider Group] (Follow up with your urologist as needed. ) Terry Vega PA-C [Primary Care Provider] - Interventions: ED Discharge Assessment Last Done: 10/11/24 13:34 Discharge Date/Time: 10/11/24 13:34 Print Language: Arabic
[2024-10-11 11:57] LABS: Appearance Urine Clear; Color Urine Yellow; Glucose Urine UA Negative (Negative); Leukocyte Esterase Urine Negative (Negative); Nitrite Urine Negative (Negative); PH 7.5 (5.0-9.0); Urine Blood Negative (Negative); Urine Ketones Negative (Negative); Urine Protein Negative (Neg-Trace)
[2024-10-11 12:02] LABS: Bacteria Urine None Seen (None Seen); Hyaline Casts Urine 0-2 /LPF (0-2); RBC Urine 0-2 /HPF (0-2); Squamous Epithelial Cell Urine 0-2 /HPF (0-2); WBC Urine 0-5 /HPF (0-5)
--- OUTSIDE RECORDS SUMMARY | 2024-10-11 12:04 | XMS_ITS | Clinical Summary ---
Author Organization [facility] it Address [address] [place] [address] Care Team Providers Care Miller Head Name Role Phone Unavailable Primary Care Provider [...]
[2024-10-11 13:34] VITALS: BP 152/108; PULSE 85; RESP 18; TEMP 36.6; O2SAT 97
== END 2024-10-11 13:34 | disposition home or self-care (01) ==
PROVIDERS: Physician Assistant; Emergency Provider Emergency Medicine; PCP Physician Assistant
DX: I86.1 Scrotal varices (principal); R10.2 Pelvic and perineal pain; N50.812 Left testicular pain
CPT/HCPCS: 76870; 81001; 93975; 99282; 99284

== ENCOUNTER → 2024-10-11 11:01 | Outpatient (BNV) | payer BC, SELFPAY | PROVIDERS: PCP Physician Assistant; Visit Provider Radiology Diagnostic Radiology | DX: N50.812 Left testicular pain (principal) | CPT/HCPCS: 76870; 93975 ==

== ENCOUNTER 2025-01-30 15:15 | Outpatient (AMB) | payer BC, SELFPAY ==
--- NOTE | 2025-01-30 15:15 | MHC.OFFVIS ---
Intake Visit Reasons: Post vas semen sample Intake Note: Patient is present for POST-VASETOMY Urology Medication:NONE Antibiotic Allergy:NONE Blood Thinner:NONE Equine Manager Required: No Accompanied by: Self / Same As Patient Allergies No Known Allergies Allergy (Verified 01/30/25 15:16) HPI Comments Details: Guero is a pleasant 39-year-old male patient of . He has a past medical history of anxiety, depression, and migraines. He presents to the office today for - vasectomy procedure Telemedicine Evaluation 15 min Consultation [employer] [facility] Video Procedure itself went well Did have some swelling 3 days later which did resolve No sperm seen on high-powered field evaluation Vasectomy procedure The patient presents for vasectomy consultation.? He is currently He has fathered -2 children with 1 single partner The youngest child is - 6 months His partner is aware and permissive for a vasectomy Current form of control is condoms Current employment is [employer] Medical History Mixed anxiety and depressive disorder Migraine Surgical History History of esophagogastroduodenoscopy (EGD) Hx of appendectomy Family History Father High cholesterol Mother Breast cancer Parkinson's disease Social History Housing: House Alcohol intake: current Alcohol intake frequency: a few times a month Alcohol type: beer Patient Tobacco Use Status: Never used Tobacco e-Cigarette/Vaping Use: Never Used service: No Current occupational status: employed 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 [employer] Cognitive needs: No Hearing needs: No Vision needs: No Review of Systems Const All systems reviewed & are unremarkable except as noted in HPI and below Reports no additional complaints Resp Reports no additional complaints GI Reports no additional complaints Reports as per HPI Musc Reports no additional complaints Physical Exam Telemedicine evaluation Appropriate responses Regular breathing rate and rhythm HEENT Head: Yes normal to inspection Ears: hearing grossly normal bilaterally Eyes General: appearance normal, both eyes and all related structures Neck Neck: Yes normal visual inspection Chest Chest palpation & inspection: normal inspection of the chest Resp Effort & Inspection: normal respiratory effort and able to speak in complete sentences Telehealth Telehealth Telehealth Platform: [employer] Location of provider rendering services: practice address Location of patient: address on file Patient Identification confirmed using: Name, : Yes Telehealth method: video Patient verbally consented to treatment: Yes Patient verbally consented to billing insurance company: Yes Patient informed of any privacy concerns related to visit: Yes Minutes spent on Phone/Video with Pt.: 15 Assessment & Plan Assessment & Plan (1) Anxiety about health: Code(s): R45.89 - Other symptoms and signs involving emotional state Category: Medical Plan P.r.n. Patient Instructions: This note is constructed using voice recognition software. While every effort has been made to ensure accuracy telegraph inspector errors may have been included. Imaging studies, laboratory and physical exam results were discussed and reviewed in detail. No major barriers to patient understanding were identified. An opportunity to ask questions regarding the treatment plan was provided. All questions were answered. The patient expressed understanding and agreement with the above treatment plan. The patient is aware they should contact our office by phone for worsening of their current condition or the appearance of new urologic symptoms. Compliance is encouraged with any medications and followup testing that is ordered. It is a privilege to participate in the urologic care of your patient. If you have any questions or concerns regarding treatment for the above conditions, or other urologic issues, please do not hesitate to contact me. The office telephone contact is [phone]. Sincerely, Dr Artie Ward MD, [facility] - Urology Compassionate Specialist Care for the Genitourinary System Coding Level of Care Code Tele Est Pt Level 3 (55164) Diagnoses Anxiety about health R45.89
== END 2025-01-30 17:00 | disposition home or self-care (01) ==
LOC: HO.HUSH 15:15
PROVIDERS: PCP Physician Assistant; Visit Provider Urology
DX: R45.89 Other symptoms and signs involving emotional state (principal)
CPT/HCPCS: 99213